=== PATIENT | male | born 2005 | race Native Hawaiian/Other Pacific Islander ===

== ENCOUNTER 2023-04-29 11:36 | Inpatient (IN) ==
[2023-04-29 12:27] LABS: Hematocrit (blood only) 45.9 % (42.0-52.0); Hemoglobin 14.7 g/dl (14.0-18.0); Mean Corpuscular Hemoglobin 26.3 pg (25.0-34.0); Platelet Count 204 K/uL (130-400); RDW Coefficient of Variation 15.9 % (11.5-14.5); RDW Standard Deviation 47.3 fL (36.4-46.3); White Blood Count 5.69 K/ul (4.8-10.8)
[2023-04-29 12:28] LABS: Basophils # (auto) 0.04 K/uL (0-0.2); Basophils % (auto) 0.7 %; Eosinophils # (auto) 0.19 K/uL (0-0.50); Eosinophils % (auto) 3.3 %; Immature Granulocytes # (auto) 0.02 K/uL (0.01-0.20); Immature Granulocytes % (auto) 0.4 %; Lymphocytes # (auto) 1.67 K/uL (1.2-3.4); Lymphocytes % (auto) 29.3 %; Mean Platelet Volume 10.7 fL (9.4-12.4); Monocytes # (auto) 0.33 K/uL (0.11-0.59); Monocytes % (auto) 5.8 %; Neutrophils # (auto) 3.44 K/uL (1.40-6.50); Neutrophils % (auto) 60.5 %
[2023-04-29 12:58] LABS: Alanine Aminotransferase 8 U/L (7-52); Albumin Globulin Ratio 1.6 (0.9-2); Albumin Level 4.8 gm/dl (3.4-5.0); Alkaline Phosphatase 61 U/L (34-104); Anion Gap 6 (3-11); Aspartate Aminotransferase 21 U/L (13-39); BUN Creatinine Ratio 18.6 (10-20); Bilirubin,Total 0.7 mg/dl (0.2-1.0); Blood Urea Nitrogen 13 mg/dl (6-23); Calcium 9.9 mg/dl (8.6-10.3); Carbon Dioxide 31 mmol/L (21-32); Chloride 101 mmol/L (98-107); Creatinine Clr Calc Pharmacy 151.9 ml/min; Est GFR (African American) > 150.0 ml/min; Est GFR (Non-African American) 135.9 ml/min; Glucose 80 mg/dl (70-99(Fasting)); Potassium 3.8 mmol/L (3.5-5.1); Sodium 138 mmol/L (136-145); Total Protein 7.8 gm/dl (6.0-8.3)
[2023-04-29 13:16] LABS: Acetaminophen < 3 ug/ml (10-30); Salicylate < 3.0 mg/dl (3.0-30)
[2023-04-29 13:19] LABS: Appearance Urine Clear (Clear); Bilirubin Urine Negative (Negative); Blood Urine Negative (Negative); Color Urine Yellow; Glucose Urine UA Negative (Negative); Ketones Urine Negative (Negative); Leukocyte Esterase Urine Negative (Negative); Nitrite Urine Negative (Negative); Protein Urine Negative (Negative); Specific Gravity Urine 1.004 (1.000-1.030); Urobilinogen Urine Negative (Negative); pH Urine 7.5 (4.5-7.5)
[2023-04-29 13:57] LABS: Amphetamines+Metham, Urine Neg (Neg); Barbiturates, Urine Neg (Neg); Benzodiazepine, Urine Neg (Neg); Cocaine, Urine Neg (Neg); MDMA (Ecstacy), Urine Neg (Neg); Methadone, Urine Neg (Neg); Opiate, Urine Neg (Neg); Phencyclidine, Urine Neg (Neg)
--- NOTE | 2023-04-29 14:35 | Emergency Department Note ---
History of Present Illness General Chief complaint: Mental Health Evaluation Stated complaint: MHA Time Seen by Provider: 04/29/23 11:44 Source: patient and family (Parents at bedside) History of Present Illness Provider complaint: Mental health evaluation Maximum Pain Intensity: 2 18-year-old male presents emergency department for mental health evaluation. Patient reports he has been feeling depressed. Patient reports he has been slee ping abnormally. Patient states he alternates between sleeping excessively and not sleeping at all. Patient reports he has had no interest in his hobbies such as running reading or music. Patient reports he has been feeling guilty but his mood instability. He reports he feels alternating between high and low energy depending on his sleep. Patient reports decrease in ability to concentrate and increase appetite. Patient reports suicidal ideation with no definitive plan however he thought to get a gun and kill himself or jump in front of traffic. Patient does have a history of depression and is on Wellbutrin. Patient was referred here by his therapist. Father at bedside reports that the patient has been talking to himself more. He reports the patient has been concerned that people are shooting guns at him. Patient father and mother both report that the patient has been having di fficulty doing his daily activities such as brushing his teeth or changing his close. Parents also report that the patient has been having on and off headaches for the last few months. Home Medications Medication Instructions Recorded Confirmed Type bupropion HCl 150 mg 24 hr tablet, 150 mg PO DAILY 04/29/23 04/29/23 History extended release Allergies Allergy/AdvReac Type Severity Reaction Status Date / Time No Known Allergies Allergy Unverified 04/29/23 14:18 Past Med/Surg History Medical History Anemia Depression with suicidal ideation No pertinent family history Surgical History No pertinent past surgical history Social History Smoking Status: Never smoker Feels Safe at Home: Yes Gender Identity: Male Physical Exam Vital Signs Vital Signs - 24 hr 04/29/23 11:37 04/29/23 11:36 Temperature 36.6 C Temperature Source Skin Respiratory Rate 18 Respiratory Depth Normal Blood Pressure 142/86 H Blood Pressure Mean 104 Pulse Oximetry 99 Oxygen Delivery Method Room Air Sepsis Recent Fever Within 48 Hours No Sepsis New/Unexplained Change in Mental Status No Sepsis Action Taken by Nursing No Action Required Physical Exam GENERAL: Patient is inappropriately laughing and smiling. HENT: Exam performed. - Head: Normocephalic and atraumatic. EYES: Conjunctivae and EOM are normal. Right eye exhibits no discharge. Left eye exhibits no discharge. No scleral icterus. NECK: Normal range of motion. Neck supple. No JVD present. CV: Normal rate, regular rhythm, normal heart sounds and intact distal pulses. There is no peripheral edema. Palpable radial pulses bue. PULM/CHEST: Effort normal and breath sounds normal. No respiratory distress. No stridor. no wheezes. no rales. ABD: The abdomen is soft. There is no tenderness. NEURO: Motor and sensation grossly intact. SKIN: Skin is warm and dry. He is not diaphoretic. PSYCH: Bizarre affect. Patient is inappropriately laughing and smiling. Patient reports suicidal ideation. Course Course 1144: The patient was evaluated in room A5. A complete history and physical exam was performed 1620: Patient medically cleared. Patient excepted to 3 S. Medical Decision Making Laboratory Data Attestation: I reviewed the patient's lab results. 04/29/23 12:11 04/29/23 12:11 Lab Results 04/29/23 04/29/23 04/29/23 Range/Units 12:11 12:11 12:11 WBC 5.69 (4.8-10.8) K/ul RBC 5.60 (4.70-6.10) M/uL Hgb 14.7 (14.0-18.0) g/dl Hct 45.9 (42.0-52.0) % MCV 82.0 (80.0-100.0) fL MCH 26.3 (25.0-34.0) pg MCHC 32.0 (32.0-36.0) g/dL RDW Std Deviation 47.3 H (36.4-46.3) fL RDW Coeff of Yolanda 15.9 H (11.5-14.5) % Plt Count 204 (130-400) K/uL MPV 10.7 (9.4-12.4) fL Immature Gran % (Auto) 0.4 % Neut % (Auto) 60.5 % Lymph % (Auto) 29.3 % [place] % (Auto) 5.8 % Eos % (Auto) 3.3 % Baso % (Auto) 0.7 % Neut # (Auto) 3.44 (1.40-6.50) K/uL Lymph # (Auto) 1.67 (1.2-3.4) K/uL [place] # (Auto) 0.33 (0.11-0.59) K/uL Eos # (Auto) 0.19 (0-0.50) K/uL Baso # (Auto) 0.04 (0-0.2) K/uL Immature Gran # (Auto) 0.02 (0.01-0.20) K/uL Sodium 138 (136-145) mmol/L Potassium 3.8 (3.5-5.1) mmol/L Chloride 101 (98-107) mmol/L Carbon Dioxide 31 (21-32) mmol/L Anion Gap 6 (3-11) BUN 13 (6-23) mg/dl Creatinine 0.70 (0.6-1.4) mg/dl Est Cr Clr Drug Dosing 151.9 ml/min Est GFR ( Amer) > 150.0 ml/min Est GFR (Non-Af Amer) 135.9 ml/min BUN/Creatinine Ratio 18.6 (10-20) Glucose 80 (70-99(Fasting)) mg/dl Calcium 9.9 (8.6-10.3) mg/dl Total Bilirubin 0.7 (0.2-1.0) mg/dl AST 21 (13-39) U/L ALT 8 (7-52) U/L Alkaline Phosphatase 61 (34-104) U/L Total Protein 7.8 (6.0-8.3) gm/dl Albumin 4.8 (3.4-5.0) gm/dl Globulin 3.0 (2.5-4.0) gm/dl Albumin/Globulin Ratio 1.6 (0.9-2) TSH 1.086 (0.300-4.500) uIu/ml Urine Color Urine Appearance (Clear) Urine pH (4.5-7.5) Ur Specific [place] (1.000-1.030) Urine Protein (Negative) Urine Glucose (UA) (Negative) Urine Ketones (Negative) Urine Blood (Negative) Urine Nitrite (Negative) Urine Bilirubin (Negative) Urine Urobilinogen (Negative) Ur Leukocyte Esterase (Negative) Salicylates (3.0-30) mg/dl Urine Opiates Screen (Neg) Ur Methadone, Qual (Neg) Acetaminophen (10-30) ug/ml Urine Barbiturates (Neg) Ur Phencyclidine (PCP) (Neg) U Amphetamin/Meth Scrn (Neg) MDMA (Ecstasy) Screen (Neg) U Benzodiazepines Scrn (Neg) Ur Cocaine Metabolite (Neg) U Marijuana (THC) Screen (Neg) Ethyl Alcohol mg/dL (<10.0) mg/dl SARS-CoV-2, RNA, NAAT (NEGATIVE) 04/29/23 04/29/23 04/29/23 Range/Units 12:11 12:11 12:11 WBC (4.8-10.8) K/ul RBC (4.70-6.10) M/uL Hgb (14.0-18.0) g/dl Hct (42.0-52.0) % MCV (80.0-100.0) fL MCH (25.0-34.0) pg MCHC (32.0-36.0) g/dL RDW Std Deviation (36.4-46.3) fL RDW Coeff of Yolanda (11.5-14.5) % Plt Count (130-400) K/uL MPV (9.4-12.4) fL Immature Gran % (Auto) % Neut % (Auto) % Lymph % (Auto) % [place] % (Auto) % Eos % (Auto) % Baso % (Auto) % Neut # (Auto) (1.40-6.50) K/uL Lymph # (Auto) (1.2-3.4) K/uL [place] # (Auto) (0.11-0.59) K/uL Eos # (Auto) (0-0.50) K/uL Baso # (Auto) (0-0.2) K/uL Immature Gran # (Auto) (0.01-0.20) K/uL Sodium (136-145) mmol/L Potassium (3.5-5.1) mmol/L Chloride (98-107) mmol/L Carbon Dioxide (21-32) mmol/L Anion Gap (3-11) BUN (6-23) mg/dl Creatinine (0.6-1.4) mg/dl Est Cr Clr Drug Dosing ml/min Est GFR ( Amer) ml/min Est GFR (Non-Af Amer) ml/min BUN/Creatinine Ratio (10-20) Glucose (70-99(Fasting)) mg/dl Calcium (8.6-10.3) mg/dl Total Bilirubin (0.2-1.0) mg/dl AST (13-39) U/L ALT (7-52) U/L Alkaline Phosphatase (34-104) U/L Total Protein (6.0-8.3) gm/dl Albumin (3.4-5.0) gm/dl Globulin (2.5-4.0) gm/dl Albumin/Globulin Ratio (0.9-2) TSH (0.300-4.500) uIu/ml Urine Color Yellow Urine Appearance Clear (Clear) Urine pH 7.5 (4.5-7.5) Ur Specific [place] 1.004 (1.000-1.030) Urine Protein Negative (Negative) Urine Glucose (UA) Negative (Negative) Urine Ketones Negative (Negative) Urine Blood Negative (Negative) Urine Nitrite Negative (Negative) Urine Bilirubin Negative (Negative) Urine Urobilinogen Negative (Negative) Ur Leukocyte Esterase Negative (Negative) Salicylates < 3.0 L (3.0-30) mg/dl Urine Opiates Screen (Neg) Ur Methadone, Qual (Neg) Acetaminophen < 3 L (10-30) ug/ml Urine Barbiturates (Neg) Ur Phencyclidine (PCP) (Neg) U Amphetamin/Meth Scrn (Neg) MDMA (Ecstasy) Screen (Neg) U Benzodiazepines Scrn (Neg) Ur Cocaine Metabolite (Neg) U Marijuana (THC) Screen (Neg) Ethyl Alcohol mg/dL < 10.0 (<10.0) mg/dl SARS-CoV-2, RNA, NAAT (NEGATIVE) 04/29/23 04/29/23 Range/Units 12:11 12:11 WBC (4.8-10.8) K/ul RBC (4.70-6.10) M/uL Hgb (14.0-18.0) g/dl Hct (42.0-52.0) % MCV (80.0-100.0) fL MCH (25.0-34.0) pg MCHC (32.0-36.0) g/dL RDW Std Deviation (36.4-46.3) fL RDW Coeff of Yolanda (11.5-14.5) % Plt Count (130-400) K/uL MPV (9.4-12.4) fL Immature Gran % (Auto) % Neut % (Auto) % Lymph % (Auto) % [place] % (Auto) % Eos % (Auto) % Baso % (Auto) % Neut # (Auto) (1.40-6.50) K/uL Lymph # (Auto) (1.2-3.4) K/uL [place] # (Auto) (0.11-0.59) K/uL Eos # (Auto) (0-0.50) K/uL Baso # (Auto) (0-0.2) K/uL Immature Gran # (Auto) (0.01-0.20) K/uL Sodium (136-145) mmol/L Potassium (3.5-5.1) mmol/L Chloride (98-107) mmol/L Carbon Dioxide (21-32) mmol/L Anion Gap (3-11) BUN (6-23) mg/dl Creatinine (0.6-1.4) mg/dl Est Cr Clr Drug Dosing ml/min Est GFR ( Amer) ml/min Est GFR (Non-Af Amer) ml/min BUN/Creatinine Ratio (10-20) Glucose (70-99(Fasting)) mg/dl Calcium (8.6-10.3) mg/dl Total Bilirubin (0.2-1.0) mg/dl AST (13-39) U/L ALT (7-52) U/L Alkaline Phosphatase (34-104) U/L Total Protein (6.0-8.3) gm/dl Albumin (3.4-5.0) gm/dl Globulin (2.5-4.0) gm/dl Albumin/Globulin Ratio (0.9-2) TSH (0.300-4.500) uIu/ml Urine Color Urine Appearance (Clear) Urine pH (4.5-7.5) Ur Specific [place] (1.000-1.030) Urine Protein (Negative) Urine Glucose (UA) (Negative) Urine Ketones (Negative) Urine Blood (Negative) Urine Nitrite (Negative) Urine Bilirubin (Negative) Urine Urobilinogen (Negative) Ur Leukocyte Esterase (Negative) Salicylates (3.0-30) mg/dl Urine Opiates Screen Neg (Neg) Ur Methadone, Qual Neg (Neg) Acetaminophen (10-30) ug/ml Urine Barbiturates Neg (Neg) Ur Phencyclidine (PCP) Neg (Neg) U Amphetamin/Meth Scrn Neg (Neg) MDMA (Ecstasy) Screen Neg (Neg) U Benzodiazepines Scrn Neg (Neg) Ur Cocaine Metabolite Neg (Neg) U Marijuana (THC) Screen Neg (Neg) Ethyl Alcohol mg/dL (<10.0) mg/dl SARS-CoV-2, RNA, NAAT NEGATIVE (NEGATIVE) Imaging Data My Impression: CT head: No [facility] Radiologist's Impression: Head CT 04/29/23 12:30 CT head/brain wo con CLINICAL HISTORY: 18 years-old Male with ams stephenson. Acute headache with altered mental status TECHNIQUE: Multiple axial CT images of the head were obtained without contrast. A dose lowering technique was utilized adhering to the principles of ALARA. CT DOSE: 625.80 mGy.cm COMPARISON: None. FINDINGS: No acute intracranial hemorrhage, midline shift, intracranial mass, hydrocephalus, territorial ischemia or abnormal extra-axial collection. The calvarium is intact. The paranasal sinuses, mastoid air cells, and middle ear cavities are clear. IMPRESSION: Normal exam. ACT 112: Negative or not required by law. The above report was generated using voice recognition software. It may contain grammatical, syntax or spelling errors. Electronically signed by: Nab Vasquez M.D. 04/29/2023 3:34 PM [facility] Narrative 1144: The patient was evaluated in room A5. A complete history and physical exam was performed 1620: Patient medically cleared. Patient excepted to 3 S. Impression & Plan Depression with suicidal ideation Discharge Plan Visit Data Chief Complaint: Mental Health Evaluation Stated Complaint: MHA ED Provider: Kian Tristan Discharge Problem: Depression with suicidal ideation Patient Disposition: Admitted As Inpatient Forms Stand Alone Forms: My [facility], Suicide Prevention Resources Prescriptions Prescriptions: No Action bupropion HCl 150 mg tablet extended release 24 hr 150 mg PO DAILY Referrals Referrals: Carmelina Real [Primary Care Provider] -
--- NOTE | 2023-04-29 15:36 | CT Scan Report ---
CT head/brain wo con CLINICAL HISTORY: 18 years-old Male with ams stephenson. Acute headache with altered mental status TECHNIQUE: Multiple axial CT images of the head were obtained without contrast. A dose lowering tech nique was utilized adhering to the principles of ALARA. CT DOSE: 625.80 mGy.cm COMPARISON: None. FINDINGS: No acute intracranial hemorrhage, midline shift, intracranial mass, hydrocephalus, territorial ischem ia or abnormal extra-axial collection. The calvarium is intact. The paranasal sinuses, mastoid air cells, and middle ear cavities are clear . IMPRESSION: Normal exam. ACT 112: Negative or not required by law. The above report was generated using voice recognition software. It may contain grammatical, syntax o r spelling errors. Electronically signed by: Nba Vasquez M.D. 04/29/2023 3:34 PM
[2023-04-29] MEDS ORDERED: ALUMINUM/MAGNESIUM SUSP 30 ML UDC PO PRN (16:17)
[2023-04-29] MEDS ORDERED: BISMUTH SUBSALICYLATE LIQD 236 ML PO PRN (16:17)
[2023-04-29] MEDS ORDERED: SODIUM CHLORIDE 0.65% NA SOLN 45 ML (OCEAN) PRN (16:17)
[2023-04-29] MEDS ORDERED: hydrOXYzine HCl 25 MG TAB PO PRN ×2 (16:17)
[2023-04-29] MEDS ORDERED: MAGNESIUM HYDROXIDE SUSP 30 ML UDC PO PRN (16:17)
[2023-04-29] MEDS ORDERED: ACETAMINOPHEN 325 MG TAB PO PRN (16:17)
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
--- NOTE | 2023-05-01 15:38 | Psychiatric Progress Note ---
Date of Service May 01, 2023 Impression / Recommendations Impression 18 yo man who presents for depression with at least passive SI that seems more related to intrusive thoughts due to mixed features with possible auditory lima vs. dissociative. Urine tox negative. most likely bipolar II presentation vs. depression with psychotic features vs. prodrome of psychosis vs. medication induced. 05/01/2023: Reviewed interim progress and assessment per above by Dr. Metz. Would add OCD to the differential as well as possible migraine aura symptoms but no clear pattern of headaches and head CT was normal. He agrees to complete mood disorder questionnaire and Y-BOCS to delineate possible mood disorder vs OCD component to better determine best direction in terms of medication management. (1) Depression with suicidal ideation: (2) Unspecified mood [affective] disorder: Plan 05/01/2023: Y-BOCS and mood disorder questionnaire provided in attempt to narrow broad differential and help with medication options. 04/30/2023: The patient was admitted to the [facility] ([facility]) on q15 min checks (behavioral with suicide precautions) for safety. The patient will participate in group, recreational, and milieu therapies and will be offered additional individual and family sessions as clinically appropriate. Hold Wellbutrin. No acute agitation. Consideration for trial of A bilify lower dose with hs dosing vs. Lamictal trial. Inventory Assets Strengths: well spoken, family oriented Needs: improve insight, improve coping Suicide Risk Level Suicide Risk Level: Moderate (q15 min suicide checks) (depression with SI prior to admission, but denies current SI, feels safe in the hospital, agrees to let nursing know should he feel unsafe or requires additional support ) Risk Factors Assessment Male: Yes Do You Have Access To A Gun?: No Mental Health Diagnoses: Yes Substance Use Disorders: No Previous Attempt: No Family History of Suicide: No Previous Psychiatric Hospitalization: No Protective Factors Assessment Employed: Yes ([employer]) Supportive Family: Yes Interval History Identifying Information JEVON ROLDAN is a 18-year-old M who currently lives in [place], has a history of depression, and was admitted on 04/29/23 17:19 on a 201 voluntary commitment for SI. Chief Complaint "I hear this humming and that's my sign that severe depression and SI is coming". Review of Systems Sleep Information Total Hours of Sleep: 6.5 Meal Information Percent Meal Consumed - Breakfast: 100 Percent Meal Consumed - Lunch: 100 Percent Meal Consumed - Dinner: 100 Subjective Subjective Patient was seen & assessed and interval progress reviewed with treatment team nursing and social work. Attending groups. This morning discussed desire to write down a list of his "delusions" with unit counselor to try to think more about what types of intrusive thoughts he has. Meeting with me describes history of hearing "humming" noise that tends to then precede a depressive episode and then eventually SI develops as his mood gets worse. Still enjoys his job but finds that as soon as he isn't distracted by talkign to someone he notices the noise and feels worse. Denies history of migraines nor seizures nor concussion nor hearing loss but states possibly the humming could precede headaches. He agrees that he likely has history of hypomanic or manic episodes but has also been on SSRIs in the past so unclear how problematic these mood shift episodes have been. He doesn't feel like the humming causes him to lose touch with reality or develop psychosis. Physical Exam Psychiatric Orientation: alert and oriented x 3 Apperance: appropriately dressed and appropriately groomed Eye Contact: good eye contact Motor Behavior: no abnormal motor movements Speech: normal rate/rhythm/volume of speech Affect: euthymic affect (inappropriately bright to content); + mood not congruent with affect Mood: + depressed mood Thought Process: + circumstantial thought process Thought Content: reality based without delusions Suicidal Thoughts: denies suicidal thoughts (feels safe in the hospital) Homicidal Thoughts: denies homicidal thoughts Hallucinations: + auditory hallucinations (repetitive noises ); no visual hallu cinations Cognition: attention grossly intact and language grossly intact Estimated Intelligence: consistent with education level Insight: + fair insight Judgment: + limited judgement Vital Signs (Past 24 Hours) Last Vital Signs Temp 36.6 C 05/01/23 06:00 Pulse 72 05/01/23 06:00 Resp 16 05/01/23 06:00 BP 106/70 05/01/23 06:46 Pulse Ox 100 05/01/23 06:00 O2 Del Method Room Air 05/01/23 06:00 Results & Data ([facility]) Current Inpatient Medications Current Inpatient Medications: Current Inpatient Medications Acetaminophen (Acetaminophen 325 Mg Tab) 650 mg PO Q4H PRN PRN Reason: Headache or Minor Fever Stop: 05/29/23 16:16 Al Hydrox/Mg Hydrox/Simethicone (Aluminum/Magnesium Susp 30 Ml Udc) 30 ml PO Q4H PRN PRN Reason: GI Upset Stop: 05/29/23 16:16 Bismuth Subsalicylate (Bismuth Subsalicylate Liqd 236 Ml) 15 ml PO PRN PRN PRN Reason: Loose Stool Stop: 05/29/23 16:16 Hydroxyzine HCl (Hydroxyzine Hcl 25 Mg Tab) 50 mg PO HSZ PRN PRN Reason: Insomnia Stop: 05/29/23 16:16 Hydroxyzine HCl (Hydroxyzine Hcl 25 Mg Tab) 25 mg PO Q4H PRN PRN Reason: Anxiety Stop: 05/29/23 16:16 Magnesium Hydroxide (Magnesium Hydroxide Susp 30 Ml Udc) 30 ml PO DAILY PRN PRN Reason: Constipation Stop: 05/29/23 16:16 Sodium Chloride (Sodium Chloride 0.65% Na Soln 45 Ml ([place])) 1 - 2 sprays NA PRN PRN PRN Reason: Nasal Dryness/Congestion Stop: 05/29/23 16:16 Mental Health & Subst Abuse Tx Psychiatrist Date Of Appointment With Psychiatric Provider: July 17, 2023 Therapist Name of Therapist: Ritu Stevenson, private practice Post Discharge Appointments Primary Care Physician Name Of Family Doctor/PCP: Dr. Heard
--- NOTE | 2023-05-02 09:14 | Psychiatric Progress Note ---
Date of Service May 02, 2023 Impression / Recommendations Impression 18 yo man who presents for depression with at least passive SI that seems more related to intrusive thoughts due to mixed features with possible auditory lima vs. dissociative. Urine tox negative. most likely bipolar II presentation vs. depression with psychotic features vs. prodrome of psychosis vs. medication induced. 05/02/2023: Depression starting to show some signs of improvement. Reviewed mood disorder questionnaire which was consistent with history of hypomanic episodes and based on additional history felt to be consistent with a diagnosis with bipolar affective disorder type II. Discussed medication treatment options in detail for mood stabilization to help with depression and to reduce liklihood of future episodes of hypomania including [place], Depakote, lamictal and antipsychotics. Discussed risks, benefits and alternatives. Patient would like to start and consented to lamictal for BPAD type II. Reviewed side effects including but not limited to: potential for fatal rash/Vinnie's Iker syndrome and need to stop immediately and seek immediate medical attention for development of any rashes, also reviewed importance of adhering to titration schedule and to contact provider before restarting lamictal if he ever were to miss more than 3 doses. Reviewed potentially higher risk of vinnie's iker syndrome among individuals with certain genetic and ethnic lineage with HLA al elias variants. Review of evidence-based literature reports cases of Holly Sinhala, [place] and [place]ese ancestry but no case reports or studies suggesting risk in those of [place] decent. He notes his family [place] [facility] so he doesn't not suspect any Sinhala heritage. Given this and that lamotrigine drug label does not currently recommend HLA allele screening prior to initiation, Rain agrees with starting lamictal. (1) Depression with suicidal ideation: (2) Unspecified mood [affective] disorder: (3) Bipolar II disorder, mild, depressed, with anxious distress: Plan 05/02/2023: Start lamictal 25mg HS 05/01/2023: Y-BOCS and mood disorder questionnaire provided in attempt to narrow broad differential and help with medication options. 04/30/2023: The patient was admitted to the [facility] ([facility] mental health unit) on q15 min checks (behavioral with suicide precautions) for safety. The patient will participate in group, recreational, and milieu therapies and will be offered additional individual and family sessions as clinically appropriate. Hold Wellbutrin. No acute agitation. Consideration for trial of Abilify lower dose with hs dosing vs. Lamictal trial. Inventory Assets Strengths: well spoken, family oriented Needs: improve insight, improve coping Suicide Risk Level Suicide Risk Level: Moderate (q15 min suicide checks) (depression with SI prior to admission, but denies current SI, feels safe in the hospital, agrees to let nursing know should he feel unsafe or requires additional support ) Risk Factors Assessment Male: Yes Do You Have Access To A Gun?: No Mental Health Diagnoses: Yes Substance Use Disorders: No Previous Attempt: No Family History of Suicide: No Previous Psychiatric Hospitalization: No Protective Factors Assessment Employed: Yes ([employer]) Supportive Family: Yes Interval History Identifying Information RAIN ROLDAN is a 18-year-old M who currently lives in [place], has a history of depression, and was admitted on 04/29/23 17:19 on a 201 voluntary commitment for SI. Chief Complaint "I'm pretty good". Review of Systems Sleep Information Total Hours of Sleep: 4.5 Meal Information Percent Meal Consumed - Breakfast: 100 Percent Meal Consumed - Lunch: 100 Percent Meal Consumed - Dinner: 100 Subjective Subjective Patient was seen & assessed and interval progress reviewed with treatment team nursing and social work. Attending groups and interacting well with peers. Spends a lot of time writing in his notebook. Has been better able to divert negative self thoughts. Woke up in the middle of the night, only slept about 4.5 hours. He feels his sleep was ok. Reports imrpoving mood, feels he is able to "catch myself" better when he starts to have thoughts of hopelessness. Reviewed mood disorder questionnaire and Y-BOCS in detail. Physical Exam Psychiatric Orientation: alert and oriented x 3 Apperance: appropriately dressed and appropriately groomed Eye Contact: good eye contact Motor Behavior: no abnormal motor movements Speech: normal rate/rhythm/volume of speech Affect: euthymic affect (inappropriately bright to content) Mood: + depressed mood Thought Process: + circumstantial thought process Thought Content: reality based without delusions Suicidal Thoughts: denies suicidal thoughts (feels safe in the hospital) Homicidal Thoughts: denies homicidal thoughts Hallucinations: + auditory hallucinations (repetitive noises ); no visual hallucinations Cognition: attention grossly intact and language grossly intact Estimated Intelligence: consistent with education level Insight: + fair insight Judgment: + limited judgement Vital Signs (Past 24 Hours) Last Vital Signs Temp 36.9 C 05/02/23 06:00 Pulse 84 05/02/23 06:51 Resp 18 05/02/23 06:00 BP 101/63 05/02/23 06:51 Pulse Ox 100 05/01/23 06:00 O2 Del Method Room Air 05/01/23 06:00 Results & Data ([facility]) Current Inpatient Medications Current Inpatient Medications: Current Inpatient Medications Acetaminophen (Acetaminophen 325 Mg Tab) 650 mg PO Q4H PRN PRN Reason: Headache or Minor Fever Stop: 05/29/23 16:16 Al Hydrox/Mg Hydrox/Simethicone (Aluminum/Magnesium Susp 30 Ml Udc) 30 ml PO Q4H PRN PRN Reason: GI Upset Stop: 05/29/23 16:16 Bismuth Subsalicylate (Bismuth Subsalicylate Liqd 236 Ml) 15 ml PO PRN PRN PRN Reason: Loose Stool Stop: 05/29/23 16:16 Hydroxyzine HCl (Hydroxyzine Hcl 25 Mg Tab) 50 mg PO HSZ PRN PRN Reason: Insomnia Stop: 05/29/23 16:16 Hydroxyzine HCl (Hydroxyzine Hcl 25 Mg Tab) 25 mg PO Q4H PRN PRN Reason: Anxiety Stop: 05/29/23 16:16 Magnesium Hydroxide (Magnesium Hydroxide Susp 30 Ml Udc) 30 ml PO DAILY PRN PRN Reason: Constipation Stop: 05/29/23 16:16 Sodium Chloride (Sodium Chloride 0.65% Na Soln 45 Ml ([place])) 1 - 2 sprays NA PRN PRN PRN Reason: Nasal Dryness/Congestion Stop: 05/29/23 16:16 Mental Health & Subst Abuse Tx Psychiatrist Date Of Appointment With Psychiatric Provider: July 17, 2023 Therapist Name of Therapist: Ritu Stevenson, private practice Post Discharge Appointments Primary Care Physician Name Of Family Doctor/PCP: Dr. Heard Primary Care Contact Information Discharge Discharge Address: [address] [place] [address]
[2023-05-02] MEDS: lamoTRIgine 25 MG TAB PO SCH (21:21)
--- NOTE | 2023-05-03 13:40 | Psychiatric Progress Note ---
Date of Service May 03, 2023 Impression / Recommendations Impression 18 yo man who presents for depression with at least passive SI that seems more related to intrusive thoughts due to mixed features with possible auditory lima vs. dissociative. Urine tox negative. most likely bipolar II presentation vs. depression with psychotic features vs. prodrome of psychosis vs. medication induced. 05/03/2023: Mood improving, no further AH, tolerating initiation of lamictal so far. (1) Depression with suicidal ideation: (2) Unspecified mood [affective] disorder: (3) Bipolar II disorder, mild, depressed, with anxious distress: Plan 05/03/2023: Continue lamictal and treatment plan. Needs a family meeting. 05/02/2023: Start lamictal 25mg HS 05/01/2023: Y-BOCS and mood disorder questionnaire provided in attempt to narrow broad differential and help with medication options. 04/30/2023: The patient was admitted to the [facility] ([facility] mental health unit) on q15 min checks (behavioral with suicide precautions) for safety. The patient will participate in group, recreational, and milieu therapies and will be offered additional individual and family sessions as clinically approp riate. Hold Wellbutrin. No acute agitation. Consideration for trial of Abilify lower dose with hs dosing vs. Lamictal trial. Inventory Assets Strengths: well spoken, family oriented Needs: improve insight, improve coping Suicide Risk Level Suicide Risk Level: Moderate (q15 min suicide checks) (depression with SI prior to admission, but denies current SI, mood improving, feels safe in the hospital, agrees to let nursing know should he feel unsafe or requires additional support ) Risk Factors Assessment Male: Yes Do You Have Access To A Gun?: No Mental Health Diagnoses: Yes Substance Use Disorders: No Previous Attempt: No Family History of Suicide: No Previous Psychiatric Hospitalization: No Protective Factors Assessment Employed: Yes ([employer]) Supportive Family: Yes Interval History Identifying Information JEVON ROLDAN is a 18-year-old M who currently lives in [place], has a history of depression, and was admitted on 04/29/23 17:19 on a 201 voluntary commitment for SI. Chief Complaint "I'm feeling more optimistic". Review of Systems Sleep Information Total Hours of Sleep: 7 Meal Information Percent Meal Consumed - Breakfast: 100 Percent Meal Consumed - Lunch: 100 Percent Meal Consumed - Dinner: 100 Subjective Subjective Patient was seen & assessed and interval progress reviewed with treatment team nursing and social work. He denies any side effects from starting lamictal. Feels his mood is improving. He's not having the noises anymore noting "the buzzing has subsided". 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 Feels he's starting to get some of his sense of creativity back which he feels is always an indication he's back to "feeling like my normal self". Physical Exam Psychiatric Orientation: alert and oriented x 3 Apperance: appropriately dressed and appropriately groomed Eye Contact: good eye contact Motor Behavior: no abnormal motor movements Speech: normal rate/rhythm/volume of speech Affect: euthymic affect Mood: + depressed mood Thought Process: goal directed thought process Thought Content: reality based without delusions Suicidal Thoughts: denies suicidal thoughts Homicidal Thoughts: denies homicidal thoughts Hallucinations: no auditory hallucinations and no visual hallucinations Cognition: attention grossly intact and language grossly intact Estimated Intelligence: consistent with education level Insight: + fair insight Judgment: + fair judgement Vital Signs (Past 24 Hours) Last Vital Signs Temp 37.2 C 05/03/23 06:00 Pulse 72 05/03/23 06:00 Resp 16 05/03/23 06:00 BP 90/51 L 05/03/23 06:46 Pulse Ox 99 05/03/23 06:00 O2 Del Method Room Air 05/03/23 06:00 Results & Data ([facility]) Current Inpatient Medications Current Inpatient Medications: Current Inpatient Medications Acetaminophen (Acetaminophen 325 Mg Tab) 650 mg PO Q4H PRN PRN Reason: Headache or Minor Fever Stop: 05/29/23 16:16 Al Hydrox/Mg Hydrox/Simethicone (Aluminum/Magnesium Susp 30 Ml Udc) 30 ml PO Q4H PRN PRN Reason: GI Upset Stop: 05/29/23 16:16 Bismuth Subsalicylate (Bismuth Subsalicylate Liqd 236 Ml) 15 ml PO PRN PRN PRN Reason: Loose Stool Stop: 05/29/23 16:16 Hydroxyzine HCl (Hydroxyzine Hcl 25 Mg Tab) 50 mg PO HSZ PRN PRN Reason: Insomnia Stop: 05/29/23 16:16 Hydroxyzine HCl (Hydroxyzine Hcl 25 Mg Tab) 25 mg PO Q4H PRN PRN Reason: Anxiety Stop: 05/29/23 16:16 Lamotrigine (Lamotrigine 25 Mg Tab) 25 mg PO HS QUINTIN Stop: 06/01/23 21:59 Last Admin: 05/02/23 21:21 Dose: 25 mg Magnesium Hydroxide (Magnesium Hydroxide Susp 30 Ml Udc) 30 ml PO DAILY PRN PRN Reason: Constipation Stop: 05/29/23 16:16 Sodium Chloride (Sodium Chloride 0.65% Na Soln 45 Ml ([place])) 1 - 2 sprays NA PRN PRN PRN Reason: Nasal Dryness/Congestion Stop: 05/29/23 16:16 Mental Health & Subst Abuse Tx Psychiatrist Name of Psychiatrist: Edgar Parra Psychiatrist's Date Of Appointment With Psychiatric Provider: 05/18/23 Time of Appointment with Psychiatrist: 10:00 AM Psychiatric Appointment Comment: [address] [facility] [id number] - please bring insurance card Therapist Name of Therapist: Ritu Ronquillo (private practice) Post Discharge Appointments Primary Care Physician Name Of Family Doctor/PCP: [facility] - Dr. Real Primary Care Time of Appointment with PCP: Please follow up with PCP as needed. Provider Appointment Comment: [id number], [place] [address] Contact Information Discharge Discharge Address: [address] [place] [id number]
[2023-05-03] MEDS: lamoTRIgine 25 MG TAB PO SCH (21:59)
--- NOTE | 2023-05-04 08:39 | Discharge Summary ---
Date of Service May 04, 2023 History of Present Illness Patient is calm and cooperative this am but on presentation to the ED yesterday pm seemed disorganized, confused, "mixed emotions" with sadness but periods of inappropriate affect. He denies SI at this time, says his thoughts are more like a "mumbling or a premonition" of what could happen. In ED his reports were nonspecific about a noose, juming, or getting a gun. He now denies yayo but states he had a "good week" last week where he attended to his classes and worked out. In ED he reported grandiosity, irritability, hyperverbal, elevated/expansive mood, facing thoughts, flight of ideas, increased energy and need for less sleep.His therapist directed him to the ED. He perhaps has experienced some paranoia like "that crashing noise" could be someone shooting. ED Physician ordered Head C which unremarkable. He reports taking Wellbutrin consistently for about a year, perhaps previously on a higher dose, he is unsure why decreased. He was recently offered a trial of Abilify (10 mg per surescripts). He states he took it once in the am and felt tired and numb and did not continue. Physical Exam Vital Signs (Past 24 Hours) Last Vital Signs Temp 36.4 C 05/04/23 06:00 Pulse 75 05/04/23 06:00 Resp 16 05/04/23 06:00 BP 96/61 L 05/04/23 06:29 Pulse Ox 99 05/04/23 06:00 O2 Del Method Room Air 05/04/23 06:00 See admission H&P and DOD summary. Principal Diagnosis Bipolar Affective Disorder Type II Psychiatric Data See daily stay summary. In short, patient was engaged with the social/therapeutic milieu of the unit, safety was maintained and the patient was cooperative with care. Medication changes included initiation of lamictal 25mg HS for BPAD type II and they tolerated this well. Wellbutrin XL 150mg daily was discontinued due to concern for activation and dopaminergic side effects. A fami ly session was held and safety plan was completed prior to discharge. He actively and insightfully participated in safety planning and in discussions about ways to seek support and recognizing warning signs and utilizing coping skills. Reviewed mobile apps that could be used for additional ways to have their safety plan and contacts easily available should thoughts of SI re-emerge in the future. Reviewed importance of seeking emergency care should SI intensify, worsen or should they feel unsafe in the future which they agree to do. 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 Day of Discharge Assessment Today the patient voices readiness for discharge. They note improvement in mood and anxiety. They deny thoughts of harm to self or others. Thoughts are organized and they are clinically improved from admission. There is no evidence of psychosis. They improved in the hospital with support and medication adjustments. They agree to take medications as prescribed and keep follow-up appointments. At the time of the discharge they are deemed to be stable and appropriate for outpatient level of care. They are not deemed to be at imminent risk of harm to self or others. They are aware of emergency and crisis services. Knows to call 911 or go to nearest emergency care center if in a crisis which cannot be handled as an outpatient. Transition of Care Transition Of Care Record: was reviewed with the patient Advance Directives Advance Directives Information Provided: Yes Advance Directives: No Mental Health Advance Directive: No Advance Directives on File: No Living Will: No Power of Study Lead: No Advance Directives Reason:: Declines as Mental Health Visit. Suicide Risk Level Suicide Risk Level Comments: Acute risk is low given improvement in mood and denial of SI, lack of access to lethal means, hopefulness and improvement in auditory hallucinations. Chronic risk is low given few non-modifiable risk factors: mood disorder and also with protective factors including employed/student, good social support, sense of responsibility to family and social supports, outpatient care in place, positive coping skills, positive problem solving, capacity to establish therapeutic alliance, willingness to engage with treatment and capacity for self- observation. Counseled on ways to reduce acute and chronic risk including engaging with outpatient providers, using safety plan if needed, utilizing supports, taking medication, and using coping skills. Modifiable risk factors of SI and depression were addressed during hospitalization through development of new coping skills, family meeting, safety planning, and medication adjustments. Risk Factors Assessment Male: Yes : No Do You Have Access To A Gun?: No Health Problems: No Mental Health Diagnoses: Yes Substance Use Disorders: No Previous Attempt: No Family History of Suicide: No Previous Psychiatric Hospitalization: No Hopelessness: No Protective Factors Assessment Employed: Yes ([employer]) Stable Relationships: Yes Supportive Family: Yes Good Rapport with Provider: Yes Discharge Data Lab Results 04/29/23 04/29/23 04/29/23 12:11 12:11 12:11 WBC 5.69 RBC 5.60 Hgb 14.7 Hct 45.9 MCV 82.0 MCH 26.3 MCHC 32.0 RDW Std Deviation 47.3 H RDW Coeff of Yolanda 15.9 H Plt Count 204 MPV 10.7 Immature Gran % (Auto) 0.4 Neut % (Auto) 60.5 Lymph % (Auto) 29.3 [place] % (Auto) 5.8 Eos % (Auto) 3.3 Baso % (Auto) 0.7 Neut # (Auto) 3.44 Lymph # (Auto) 1.67 [place] # (Auto) 0.33 Eos # (Auto) 0.19 Baso # (Auto) 0.04 Immature Gran # (Auto) 0.02 Sodium 138 Potassium 3.8 Chloride 101 Carbon Dioxide 31 Anion Gap 6 BUN 13 Creatinine 0.70 Est Cr Clr Drug Dosing 151.9 Est GFR ( Amer) > 150.0 Est GFR (Non-Af Amer) 135.9 BUN/Creatinine Ratio 18.6 Glucose 80 Calcium 9.9 Total Bilirubin 0.7 AST 21 ALT 8 Alkaline Phosphatase 61 Total Protein 7.8 Albumin 4.8 Globulin 3.0 Albumin/Globulin Ratio 1.6 TSH 1.086 Urine Color Urine Appearance Urine pH Ur Specific [place] Urine Protein Urine Glucose (UA) Urine Ketones Urine Blood Urine Nitrite Urine Bilirubin Urine Urobilinogen Ur Leukocyte Esterase Salicylates Urine Opiates Screen Ur Methadone, Qual Acetaminophen Urine Barbiturates Ur Phencyclidine (PCP) U Amphetamin/Meth Scrn MDMA (Ecstasy) Screen U Benzodiazepines Scrn Ur Cocaine Metabolite U Marijuana (THC) Screen Ethyl Alcohol mg/dL SARS-CoV-2, RNA, NAAT 04/29/23 04/29/23 04/29/23 12:11 12:11 12:11 WBC RBC Hgb Hct MCV MCH MCHC RDW Std Deviation RDW Coeff of Yolanda Plt Count MPV Immature Gran % (Auto) Neut % (Auto) Lymph % (Auto) [place] % (Auto) Eos % (Auto) Baso % (Auto) Neut # (Auto) Lymph # (Auto) [place] # (Auto) Eos # (Auto) Baso # (Auto) Immature Gran # (Auto) Sodium Potassium Chloride Carbon Dioxide Anion Gap BUN Creatinine Est Cr Clr Drug Dosing Est GFR ( Amer) Est GFR (Non-Af Amer) BUN/Creatinine Ratio Glucose Calcium Total Bilirubin AST ALT Alkaline Phosphatase Total Protein Albumin Globulin Albumin/Globulin Ratio TSH Urine Color Yellow Urine Appearance Clear Urine pH 7.5 Ur Specific [place] 1.004 Urine Protein Negative Urine Glucose (UA) Negative Urine Ketones Negative Urine Blood Negative Urine Nitrite Negative Urine Bilirubin Negative Urine Urobilinogen Negative Ur Leukocyte Esterase Negative Salicylates < 3.0 L Urine Opiates Screen Ur Methadone, Qual Acetaminophen < 3 L Urine Barbiturates Ur Phencyclidine (PCP) U Amphetamin/Meth Scrn MDMA (Ecstasy) Screen U Benzodiazepines Scrn Ur Cocaine Metabolite U Marijuana (THC) Screen Ethyl Alcohol mg/dL < 10.0 SARS-CoV-2, RNA, NAAT 04/29/23 04/29/23 12:11 12:11 WBC RBC Hgb Hct MCV MCH MCHC RDW Std Deviation RDW Coeff of Yolanda Plt Count MPV Immature Gran % (Auto) Neut % (Auto) Lymph % (Auto) [place] % (Auto) Eos % (Auto) Baso % (Auto) Neut # (Auto) Lymph # (Auto) [place] # (Auto) Eos # (Auto) Baso # (Auto) Immature Gran # (Auto) Sodium Potassium Chloride Carbon Dioxide Anion Gap BUN Creatinine Est Cr Clr Drug Dosing Est GFR ( Amer) Est GFR (Non-Af Amer) BUN/Creatinine Ratio Glucose Calcium Total Bilirubin AST ALT Alkaline Phosphatase Total Protein Albumin Globulin Albumin/Globulin Ratio TSH Urine Color Urine Appearance Urine pH Ur Specific [place] Urine Protein Urine Glucose (UA) Urine Ketones Urine Blood Urine Nitrite Urine Bilirubin Urine Urobilinogen Ur Leukocyte Esterase Salicylates Urine Opiates Screen Neg Ur Methadone, Qual Neg Acetaminophen Urine Barbiturates Neg Ur Phencyclidine (PCP) Neg U Amphetamin/Meth Scrn Neg MDMA (Ecstasy) Screen Neg U Benzodiazepines Scrn Neg Ur Cocaine Metabolite Neg U Marijuana (THC) Screen Neg Ethyl Alcohol mg/dL SARS-CoV-2, RNA, NAAT NEGATIVE Hospital Course (1) Depression with suicidal ideation: (2) Unspecified mood [affective] disorder: (3) Bipolar II disorder, mild, depressed, with anxious distress: Plan 05/03/2023: Continue lamictal and treatment plan. Needs a family meeting. 05/02/2023: Start lamictal 25mg HS 05/01/2023: Y-BOCS and mood disorder questionnaire provided in attempt to narrow broad differential and help with medication options. 04/30/2023: The patient was admitted to the [facility] ([facility] mental health unit) on q15 min checks (behavioral with suicide precautions) for safety. The patient will participate in group, recreational, and milieu therapies and will be offered additional individual and family sessions as clinically appropriate. Hold Wellbutrin. No acute agitation. Consideration for trial of Abilify lower dose with hs dosing vs. Lamictal trial. Mental Health & Subst Abuse Tx Psychiatrist Name of Psychiatrist: Edgar Parra Psychiatrist's Date Of Appointment With Psychiatric Provider: 05/18/23 Time of Appointment with Psychiatrist: 10:00 AM Psychiatric Appointment Comment: [address] [facility] [id number] - please bring insurance card Psychiatrist Release of Information: Obtained, Reviewed and Signed Therapist Name of Therapist: Ritu Ronquillo (private practice) Therapist's Phone Number: [phone] Date of Therapist Appointment: 05/06/23 Time of Therapist Appointment: 1:00pm Post Discharge Appointments Primary Care Physician Name Of Family Doctor/PCP: [facility] - Dr. Real Primary Care Time of Appointment with PCP: Please follow up with PCP as needed. Provider Appointment Comment: [address], [place] [address] Primary Care Release of Information: Obtained, Reviewed and Signed Contact Information Discharge Discharge [address]: [address] [place] [id number] Discharge Plan Discharge Items Patient Disposition: Home - Self-Care Reason For Visit: MDD Discharge Diagnosis: Bipolar Affective Disorder Type II Activity: Resume your previous activity Non-emergency contact: Primary Care Provider, Psychiatrist and Therapist Call non-emergency contact if: you have any medication questions and your symptoms worsen Follow-up/Referrals: Carmelina Real [Primary Care Provider] - Diet: Regular Addtl Attending Provider Instructions: Optional mobile apps we discussed: -Suicide safety plan -Virtual Hope Box SPECIAL CARE INSTRUCTIONS: 1. Follow through with your scheduled aftercare appointments. If unable to keep an appointment, please call to reschedule. 2. Take your medication only as prescribed. Medication should not be changed or stopped without the approval of your doctor. In the event of worsening symptoms or concerns about side effects, contact your doctor immediately. 3. Utilize new healthy coping skills, anger management skills, and stress management skills learned during your hospitalization. Journal feelings and process them with a support person. Identify stressors or situations that may result in relapse, deterioration or inappropriate behaviors and develop a plan to deal with those issues. 4. If your coping skills are ineffective and you are in crisis, contact your outpatient providers for direction. If unable to reach your providers, please call the [facility] CRISIS LINE AT , go to the [facility] walk-in center at [address] [place] [address] A, [place], or go to the closest Emergency Room. 5. Avoid alcohol and un-prescribed drugs. 6. You have been provided with the Mental Health Advance Directives Pamphlet for your review. 7. Your condition is stable for discharge to outpatient level of care, but recovery is an ongoing process. Ifthoughts to harm yourself or others return, follow the safety plan developed during your stay. Planning for a safe return home includes securing weapons. Our treatment team recommends weaponsbe removed from the home until your outpatient provider reassesses your progress. In rare cases where the items themselvescannot be removed, guns and ammunitionshould be secured separatelyand keys stored by a reliable personoutside of the home. If you were admitted on an involuntary commitment, the police or other legal authorities may be involved in this process. AFTERCARE APPOINTMENTS: * Please call your insurance company prior to your scheduled appointment to confirm your aftercare providers are covered. Take your insurance information to your appointments. WHO TO CALL AND WHEN: Medical Emergencies: For questions or emergencies related to your hospital stay, please contact the Inpatient Behavioral Health Unit at [phone]. A psychiatric aide is on-call 31/05 for the Behavioral Health Unit for emergencies At any time you feel your situation is an emergency, you may also call 911 immediately. National Crisis Hotline: 988 Pending Studies at Discharge: No Stand-Alone Forms: My [facility] Medications and DC Order Prescriptions: New lamotrigine [Lamictal] 25 mg Tablet 25 mg PO HS 30 Days Qty: 30 0RF Discontinued bupropion HCl 150 mg tablet extended release 24 hr 150 mg PO DAILY Discharge Orders: Discharge Order (Routine); Ordered 05/04/23 Ordered By: Felicia Bucio Admission Data Admit Date/Time: 04/29/23 17:19 Attending Provider: Felicia Bucio Admit Provider: Sujey Metz Primary Care Provider: Carmelina Real Other Interventions: Discharge Summary Assessment (RN) Last Done: 05/04/23 10:18 PSY Interdisciplinary Discharge Planning Last Done: 05/04/23 10:18 Coding Level of Care Code 07472 D/C day mgmt > 30 min Diagnoses Depression with suicidal ideation F32.A; R45.851 Unspecified mood [affective] disorder F39 Bipolar II disorder, mild, depressed, with anxious distress F31.81 Time Spent (min) 35
== END 2023-05-04 11:23 | disposition home or self-care (01) | DRG 885 ==
LOC: ED 11:36 → 3S 17:14 → SUATTDRO 17:19 → 3S 17:19

== ENCOUNTER 2025-10-25 16:46 | Inpatient (IN) ==
--- NOTE | 2025-10-25 17:11 | Emergency Department Note ---
Impression & Plan Depression with suicidal ideation ED Provider Note ED Provider Note NAME: JEVON ROLDAN AGE:20 SEX: Male : 2005 ARRIVES VIA: POV INFORMANT: Patient ED PROVIDER(s): Krysta Galan CHIEF COMPLAINT: Suicidal ideation HPI: 20-year-old male presents the emergency room with complaints of suicidal ideation. Patient states he does not really have a plan, but he has been speaking about suicide per his family. He states that sometimes things get bad like this and he tried to come in earlier than he did the last time when he got really out of control by his own recollection of events. He states that he has been taking his medications. He just is not sure what is going on, but he quit school, is just sleeping and not really doing anything else, and feels he needs help. He denies any homicidal ideation. Denies any drugs or alcohol. PAST MEDICAL HISTORY:See Below PAST SURGICAL HISTORY:See Below FAMILY HISTORY:See Below SOCIAL HISTORY:See Below HOME MEDICATIONS:See Below ALLERGIES:See Below VITALS:See Below PHYSICAL EXAMINATION: GENERAL: alert, well appearing, well nourished, no distress, non-toxic NECK: supple, no nuchal rigidity, no adenopathy, non-tender LUNGS: Clear to auscultation. Normal chest wall mechanics, no w/r/r HEART: no murmurs, S1 normal and S2 normal ABDOMEN: abdomen soft, non-tender, normo-active bowel sounds, no masses, no rebound or guarding. BACK: Back is symmetrical on inspection and there is no deformity, no midline tenderness, no CVA tenderness. SKIN: no rashes, petechiae, orbruising UPPER EXTREMITIES: upper extremities are grossly normal. FROM, nml pulses b/l. LOWER EXTREMITIES: No pitting edema. FROM, nml pulses b/l. NEURO EXAM: Normal sensorium, normal speech, nogross weakness of arms, no gross weakness of legs. Vital Signs: reviewed and remarkable Differential Diagnosis: Mood disorder, infection, hypoglycemia, electrolyte abnormalities, cardiac sources, intracerebral event, toxicologic, trauma, neurologic, as well as other pathologies. MEDICAL DECISION MAKIN-year-old male presents emergency room with complaints of suicidal ideation. Agreeable to inpatient mental health, was admitted after an evaluation in the emergency room without further incident. Consultation(s): Behavioral health ER Treatment Provided: See below Diagnostics Interpreted By Me: -ECG: EKG shows normal sinus rhythm at a rate of [address] changes, some ST flattening in lead III. -Laboratory studies: As stated above and show below. 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 Beliefs That Will Affect Care: None Feels Safe at Home: Yes Gender Identity: Male Assistive Devices: None Allergies Allergies Allergy/AdvReac Type Severity Reaction Status Date / Time No Known Allergies Allergy Unverified 04/29/23 14:18 Home Meds Home Medications Medication Instructions Recorded Confirmed quetiapine 25 mg tablet 150 mg PO QPM 08/13/25 10/25/25 vilazodone 20 mg tablet 10 mg PO QAM 08/13/25 10/25/25 ergocalciferol (vitamin D2) 1,250 1,250 mcg PO WK 10/25/25 10/25/25 mcg (50,000 unit) capsule ferrous sulfate 325 mg (65 mg 325 mg PO QPM 10/25/25 10/25/25 iron) tablet (iron) Results & Data (ED) Vital Signs Vital Signs - 24 hr 10/25/25 16:49 10/25/25 18:43 10/25/25 20:25 Temperature 36.6 C Temperature Source Temporal Artery Scan Pulse Rate 86 Pulse Rate [Finger] 73 Respiratory Rate 18 16 16 Respiratory Effort / Characteristics Non-Labored Spontaneous Respiratory Depth Normal Respiratory Pattern Regular Blood Pressure 139/86 Blood Pressure [Right Arm] 124/78 Blood Pressure Mean 103 Blood Pressure Mean [Right Arm] 93 Blood Pressure Position [Right Arm] Semi-fowlers Pulse Oximetry 100 97 Oxygen Delivery Method Room Air Sepsis Recent Fever Within 48 Hours No Sepsis New/Unexplained Change in Mental Status N/A Sepsis Action Taken by Nursing No Action Required Laboratory Data 10/25/25 17:41 10/25/25 17:41 Lab Results 10/25/25 10/25/25 Range/Units 17:05 17:41 WBC 6.49 (4.8-10.8) K/ul RBC 5.82 (4.70-6.10) M/uL Hgb 16.1 (14.0-18.0) g/dL Hct 48.7 (42.0-52.0) % MCV 83.7 (80.0-100.0) fL MCH 27.7 (25.0-34.0) pg MCHC 33.1 (32.0-36.0) g/dL RDW Std Deviation 36.2 L (36.4-46.3) fL RDW Coeff of Yolanda 12.0 (11.5-14.5) % Plt Count 203 (130-400) K/uL MPV 9.9 (9.4-12.4) fL Immature Gran % (Auto) 0.8 % Neut % (Auto) 61.8 % Lymph % (Auto) 29.1 % [place] % (Auto) 5.1 % Eos % (Auto) 2.6 % Baso % (Auto) 0.6 % Neut # (Auto) 4.01 (1.40-6.50) K/uL Lymph # (Auto) 1.89 (1.20-3.40) K/uL [place] # (Auto) 0.33 (0.11-0.59) K/uL Eos # (Auto) 0.17 (0.00-0.50) K/uL Baso # (Auto) 0.04 (0.00-0.20) K/uL Immature Gran # (Auto) 0.05 (0.01-0.20) K/uL Sodium 139 (136-145) mmol/L Potassium 3.9 (3.5-5.1) mmol/L Chloride 104 (98-107) mmol/L Carbon Dioxide 26 (21-32) mmol/L Anion Gap 9 (3-11) BUN 12 (6-23) mg/dl Creatinine 0.74 (0.6-1.4) mg/dl Est Cr Clr Drug Dosing 157.0 ml/min eGFR 131.38 BUN/Creatinine Ratio 16.2 (10-20) Glucose 90 (70-99(Fasting)) mg/dl Calcium 9.9 (8.6-10.3) mg/dl Total Bilirubin 0.5 (0.2-1.0) mg/dl AST 18 (13-39) U/L ALT 6 L (7-52) U/L Alkaline Phosphatase 73 (34-104) U/L Total Protein 8.0 (6.0-8.3) gm/dl Albumin 4.7 (3.4-5.0) gm/dl Globulin 3.3 (2.5-4.0) gm/dl Albumin/Globulin Ratio 1.4 (0.9-2) TSH 1.384 (0.300-4.500) uIu/ml Urine Color Yellow Urine Appearance Clear (Clear) Urine pH 7.5 (4.5-7.5) Ur Specific [place] 1.022 (1.000-1.030) Urine Protein Negative (Negative) Urine Glucose (UA) Negative (Negative) Urine Ketones Trace H (Negative) Urine Blood Negative (Negative) Urine Nitrite Negative (Negative) Urine Bilirubin Negative (Negative) Urine Urobilinogen Negative (Negative) Ur Leukocyte Esterase Negative (Negative) Urine Comment Salicylates < 3.0 L (3.0-30) mg/dl Urine Opiates Screen Neg (Neg) Ur Methadone, Qual Neg (Neg) Urine Fentanyl Screen Neg (Neg) Acetaminophen < 3 L (10-30) ug/ml Urine Barbiturates Neg (Neg) Ur Phencyclidine (PCP) Neg (Neg) U Amphetamin/Meth Scrn Neg (Neg) MDMA (Ecstasy) Screen Neg (Neg) U Benzodiazepines Scrn Neg (Neg) Ur Cocaine Metabolite Neg (Neg) U Marijuana (THC) Screen Neg (Neg) Ethyl Alcohol mg/dL < 10.0 (<10.0) mg/dl Administered Medications Discontinued Medications Ferrous Sulfate (Ferrous Sulfate 325 Mg Tab) 325 mg PO ONE STA Stop: 10/25/25 22:48 Last Admin: 10/25/25 23:06 Dose: 325 mg Documented By: ABDULAZIZ Quetiapine Fumarate (Quetiapine Fumarate 25 Mg Tablet) 150 mg PO ONE ONE Stop: 10/25/25 22:46 Last Admin: 10/25/25 23:06 Dose: 150 mg Documented By: ABDULAZIZ Discharge Plan Visit Data Chief Complaint: Mental Health Evaluation Stated Complaint: DELUSIONAL THINKING ED Provider: Ysabel Galan Discharge Problem: Depression with suicidal ideation Patient Disposition: Admitted As Inpatient Condition: Good Discharge Instructions Interventions: ED Discharge Assessment Last Done: 10/25/25 21:15
[2025-10-25 17:29] LABS: Appearance Urine Clear (Clear); Glucose Urine UA Negative (Negative)
[2025-10-25 17:56] LABS: Hematocrit (blood only) 48.7 % (42.0-52.0); Hemoglobin 16.1 g/dL (14.0-18.0); Immature Granulocytes # (auto) 0.05 K/uL (0.01-0.20); Immature Granulocytes % (auto) 0.8 %; Mean Corpuscular Hemoglobin 27.7 pg (25.0-34.0); Mean Corpuscular Volume 83.7 fL (80.0-100.0); Platelet Count 203 K/uL (130-400); RDW Standard Deviation 36.2 fL (36.4-46.3); Red Blood Count 5.82 M/uL (4.70-6.10); White Blood Count 6.49 K/ul (4.8-10.8)
[2025-10-25 18:15] LABS: Alanine Aminotransferase 6.0 U/L (7-52); Albumin Globulin Ratio 1.4 (0.9-2); Albumin Level 4.7 gm/dl (3.4-5.0); Alkaline Phosphatase 73.0 U/L (34-104); Anion Gap 9.0 (3-11); Bilirubin,Total 0.5 mg/dl (0.2-1.0); Blood Urea Nitrogen 12.0 mg/dl (6-23); Calcium 9.9 mg/dl (8.6-10.3); Carbon Dioxide 26.0 mmol/L (21-32); Chloride 104.0 mmol/L (98-107); Creatinine Clr Calc Pharmacy 157.0 ml/min; Globulin 3.3 gm/dl (2.5-4.0); Glucose 90.0 mg/dl (70-99(Fasting)); Potassium 3.9 mmol/L (3.5-5.1); Sodium 139.0 mmol/L (136-145); Total Protein 8.0 gm/dl (6.0-8.3)
[2025-10-25 18:17] LABS: Acetaminophen < 3 ug/ml (10-30); Salicylate < 3.0 mg/dl (3.0-30)
[2025-10-25 18:29] LABS: Thyroid Stimulating Hormone 1.384 uIu/ml (0.300-4.500)
[2025-10-25 18:34] LABS: Amphetamines+Metham, Urine Neg (Neg); MDMA (Ecstacy), Urine Neg (Neg); Marijuana, Urine Neg (Neg)
[2025-10-25] MEDS ORDERED: ACETAMINOPHEN 325 MG TAB PO PRN (21:57)
[2025-10-25] MEDS ORDERED: MAGNESIUM HYDROXIDE SUSP 30 ML UDC PO PRN (21:57)
[2025-10-25] MEDS ORDERED: BISMUTH SUBSALICYLATE 262 MG CHEW PO PRN (21:57)
[2025-10-25] MEDS ORDERED: ALUMINUM/MAGNESIUM SUSP 30 ML UDC PO PRN (21:57)
[2025-10-25] MEDS ORDERED: SODIUM CHLORIDE 0.65% NA SOLN 45 ML (OCEAN) PRN (21:57)
[2025-10-25] MEDS ORDERED: LORazepam 0.5 MG TAB PO PRN (22:28)
[2025-10-25] MEDS: FERROUS SULFATE 325 MG TAB PO STA (23:06)
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
[2025-10-26] MEDS: lamoTRIgine 25 MG TAB PO SCH (12:43)
--- NOTE | 2025-10-26 18:19 | Electrocardiogram Report ---
Test Reason : Blood Pressure : */* mmHG Vent. Rate : 72 BPM Atrial Rate : 72 BPM P-R Int : 120 ms QRS Dur : 104 ms QT Int : 372 ms P-R-T Axes : 54 81 50 degrees QTcB Int : 407 ms Normal sinus rhythm Normal ECG When compared with ECG of 13-Aug-2025 16:32, No significant change was found Confirmed by Giovani Barfield ([id number]) on 10/26/2025 6:19:35 PM Referred By: Confirmed By: Giovani Barfield
[2025-10-26] MEDS: FERROUS SULFATE 325 MG TAB PO SCH (20:43)
[2025-10-27] MEDS: INFLUENZA VACC TS2025-26(6m+)/PF (IIV3) 0.5mL Syr IM ONE (10:48)
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
[2025-10-28] MEDS: DIVALPROEX DELAY RELEASE 250 MG TABEC PO SCH (21:22)
--- NOTE | 2025-10-29 13:58 | Psychiatric Progress Note ---
Date of Service October 29, 2025 Impression / Recommendations Impression Patient is 20-year-old male with a known history of bipolar 2 disorder, and presents with likely mixed episode, involving depressive features (hypersomnia, low motivation and low mood with increased sense of worthlessness), and mild hypomanic symptoms (talkativeness, pressured speech, racing thoughts). However, also had a significant amount of anxiety, which does seem to stem from a longstanding history of multiple traumatic events, many of them related to his minority status, which interfered with his normal development of identity and social connectedness. A:Patient having disrupted sleep with distressing dreams. Today we reflected on his childhood traumas. Discussed mindfulness, automatic thoughts, self worth strategies. Tolerating Depakote well. Plan to optimize Depakote dose and decrease Seroquel dose. Overall, I spent a total of 70 minutes on this patient's care, including review of chart/records, direct evaluation of the patient, gathering collateral, ordering medication, coordination with nursing, interdisciplinary team meeting, and documentation. (1) Borderline personality disorder: (2) ADHD (attention deficit hyperactivity disorder), inattentive type: (3) Mixed bipolar II disorder: Plan 10/29/2025: Increase Depakote to 500 mg at bedtime Decrease quetiapine to 50 mg at bedtime 10/28/2025: Start Depakote 250 mg at bedtime 10/27/2025: Questionnaires: BPD screener, medication check list Continue medications 10/26/25: The patient was admitted to the [facility] ([facility]) on q15 min checks (behavioral with suicide precautions) for safety. The patient will participate in group, recreational, and milieu therapies and will be offered additional individual and family sessions as clinically appropriate. New medications initiated: Lamictal 25 mg Continue the following home medications: Seroquel 150 mg nightly * Viibryd can be continued once patient brings it in from home, since it is not on hospital's formulary The following PRN medications will be started as well: Zyprexa and Ativan as needed agitation Vistaril as needed sleep or anxiety Maalox, Pepto, milk of mag as needed GI distress Tylenol as needed pain Inventory Assets Strengths: well-spoken, establish outpatient providers, supportive parents Needs: and proved coping skills, medication adjustment, possibly new therapy referral Suicide Risk Level Suicide Risk Level: Moderate (q15 min suicide checks) Suicide Risk Level Comments: moderate given statements of passive/vague suicidal ideation. No intent or plan. No history of attempts. Does have a past psychiatric admission, and increased impulsivity due to hypomanic features. Risk Factors Assessment Male: Yes : No Do You Have Access To A Gun?: No Health Problems: No Mental Health Diagnoses: Yes Substance Use Disorders: No Previous Attempt: No Family History of Suicide: No Previous Psychiatric Hospitalization: Yes Protective Factors Assessment Ep[employer]opalian Beliefs: No : No Responsible for Young Children: No Employed: No Supportive Family: Yes Interval History Identifying Information Patient is 20-year-old male with a known history of bipolar 2 disorder presenting with depressive features (hypersomnia, low motivation and low mood with increased sense of worthlessness), and mild hypomanic symptoms (talkativeness, pressured speech, racing thoughts). Chief Complaint Anxiety, emotional dysregulation Review of Systems Sleep Information Total Hours of Sleep: 6.5 Meal Information Percent Meal Consumed - Breakfast: 0 Percent Meal Consumed - Lunch: 100 Percent Meal Consumed - Dinner: 100 Subjective Subjective Patient was seen & assessed and interval progress reviewed with treatment team nursing and social work Overnight slept 6.5 hours. Attending groups. Rated mood 3 out of 10. At times presents a bright and reactive affect. Parents visited last night. On interview patient reports he is "cheery and laughing" but still feels low at times. Often circumstantial and tangential throughout the conversation and requires redirection. Reports having dreams last night of his classmates being harsh towards him and we reflect on this. Says that when he grew up his father was studying and was quite busy and his mom was trying to take care of the household. Remembers a moment when she got very sick and he felt like his life was collapsing. He felt neglected and did not feel he had good role models. He lived in a town in [place] where a lot of his friends were there temporarily and would leave eventually. Reports life always feeling miserable. Often witnessed verbal fights between parents and there was a communication gap due to different languages and cultural understanding. Physical Exam Mental Examination Appearance: Well Groomed Eye Contact: Maintains Eye Contact Motor Behavior: Unremarkable Speech: Normal and Circumstantial Mood: Calm and Anxious Affect: Congruent and Constricted Thought Process: Intact, Circumstantial and Linear Thought Content: Racing Hallucinations: None Insight: Fair Judgement: Fair Vital Signs (Past 24 Hours) Last Vital Signs Temp 36.4 C L 10/29/25 06:54 Pulse 55 L 10/29/25 06:54 Resp 18 10/29/25 06:54 BP 110/55 L 10/29/25 06:54 Pulse Ox 98 10/29/25 06:54 O2 Del Method Room Air 10/29/25 06:54 A physical exam was performed in the ED for the purposes of medical dontrellhans suarez. I accept that physical as correct and adequate for the purposes of the inpatient physical exam. Results & Data ([facility]) Current Inpatient Medications Current Inpatient Medications: Current Inpatient Medications Acetaminophen (Acetaminophen 325 Mg Tab) 650 mg PO Q4H PRN PRN Reason: Headache or Minor Fever Stop: 11/24/25 21:56 Al Hydrox/Mg Hydrox/Simethicone (Aluminum/Magnesium Susp 30 Ml Udc) 30 ml PO Q4H PRN PRN Reason: GI Upset Stop: 11/24/25 21:56 Bismuth Subsalicylate (Bismuth Subsalicylate 262 Mg Chew) 2 tab PO Q30M PRN PRN Reason: Loose Stool/Diarrhea Stop: 11/24/25 21:56 Divalproex Sodium (Divalproex Delay Release 250 Mg Tabec) 250 mg PO HS QUINTIN Stop: 11/27/25 21:59 Last Admin: 10/28/25 21:22 Dose: 250 mg Ergocalciferol (Ergocalciferol 1250 Mcg (50,000 Units) Cap) 1,250 mcg PO We@0900 [facility] Stop: 11/30/25 08:59 Ferrous Sulfate (Ferrous Sulfate 325 Mg Tab) 325 mg PO QPM QUINTIN Stop: 11/25/25 20:59 Last Admin: 10/28/25 21:22 Dose: 325 mg Hydroxyzine HCl (Hydroxyzine Hcl 25 Mg Tab) 50 mg PO HSZ PRN PRN Reason: Insomnia Stop: 11/24/25 21:56 Hydroxyzine HCl (Hydroxyzine Hcl 25 Mg Tab) 25 mg PO Q4H PRN PRN Reason: Anxiety Stop: 11/24/25 21:56 Lamotrigine (Lamotrigine 25 Mg Tab) 25 mg PO QAM [facility]; Protocol Stop: 11/25/25 11:59 Last Admin: 10/29/25 09:57 Dose: 25 mg Lorazepam (Lorazepam 0.5 Mg Tab) 0.5 mg PO Q6 PRN PRN Reason: Anxiety/Agitation Stop: 11/24/25 22:27 Magnesium Hydroxide (Magnesium Hydroxide Susp 30 Ml Udc) 30 ml PO DAILY PRN PRN Reason: Constipation Stop: 11/24/25 21:56 Olanzapine (Olanzapine 5 Mg Tablet) 5 mg PO Q6 PRN PRN Reason: Agitation Stop: 11/25/25 00:00 Quetiapine Fumarate (Quetiapine Fumarate 25 Mg Tablet) 150 mg PO QPM QUINTIN Stop: 11/25/25 20:59 Last Admin: 10/28/25 21:22 Dose: 150 mg Sodium Chloride (Sodium Chloride 0.65% Na Soln 45 Ml ([place])) 1 - 2 sprays NA PRN PRN PRN Reason: Nasal Dryness/Congestion Stop: 11/24/25 21:56 Mental Health & Subst Abuse Tx Psychiatrist Name of Psychiatrist: Kat Ferraro Psychiatrist's Date Of Appointment With Psychiatric Provider: 11/05/25 Time of Appointment with Psychiatrist: 8:30AM Psychiatric Appointment Comment: Virtual Therapist Name of Therapist: Sydney Mclaughlin Therapist's Date of Therapist Appointment: 11/22/24 Time of Therapist Appointment: 4PM Therapy Appointment Comment: In person. [address] [facility], [address], [place] [address] Textile Chemist Name of Textile Chemist: n/a Post Discharge Appointments Primary Care Physician Name Of Family Doctor/PCP: Dr. Beltran Contact Information Discharge Discharge Address: [address] [place] [id number] Contact Information Comment: [email or web address]
[2025-10-29] MEDS: DIVALPROEX DELAY RELEASE 500 MG TAB PO SCH (21:02)
--- NOTE | 2025-10-30 12:36 | Psychiatric Progress Note ---
Date of Service October 30, 2025 Impression / Recommendations Impression Patient is 20-year-old male with a known history of bipolar 2 disorder, and presents with likely mixed episode, involving depressive features (hypersomnia, low motivation and low mood with increased sense of worthlessness), and mild hypomanic symptoms (talkativeness, pressured speech, racing thoughts). However, also had a significant amount of anxiety, which does seem to stem from a longstanding history of multiple traumatic events, many of them related to his minority status, which interfered with his normal development of identity and social connectedness. A:Presenting continued racing thoughts and negative self judgment. Disrupted and shortened sleep; plan to trial trazodone instead of quetiapine. Patient was counseled about mindfulness and strategies for emotional regulation. Overall, I spent a total of 40 minutes on this patient's care, including review of chart/records, direct evaluation of the patient, ordering medication, coordination with nursing, interdisciplinary team meeting, and documentation. (1) Borderline personality disorder: (2) ADHD (attention deficit hyperactivity disorder), inattentive type: (3) Mixed bipolar II disorder: Plan 10/30/2025: Discontinue quetiapine Start trazodone 50 mg at bedtime 10/29/2025: Increase Depakote to 500 mg at bedtime Decrease quetiapine to 50 mg at bedtime 10/28/2025: Start Depakote 250 mg at bedtime 10/27/2025: Questionnaires: BPD screener, medication check list Continue medications 10/26/25: The patient was admitted to the [facility] ([facility] unit) on q15 min checks (behavioral with suicide precautions) for safety. The patient will participate in group, recreational, and milieu therapies and will be offered additional individual and family sessions as clinically appropriate. New medications initiated: Lamictal 25 mg Continue the following home medications: Seroquel 150 mg nightly * Viibryd can be continued once patient brings it in from home, since it is not on hospital's formulary The following PRN medications will be started as well: Zyprexa and Ativan as needed agitation Vistaril as needed sleep or anxiety Maalox, Pepto, milk of mag as needed GI distress Tylenol as needed pain Inventory Assets Strengths: well-spoken, establish outpatient providers, supportive parents Needs: and proved coping skills, medication adjustment, possibly new therapy referral Suicide Risk Level Suicide Risk Level: Moderate (q15 min suicide checks) Suicide Risk Level Comments: moderate given statements of passive/vague suicidal ideation. No intent or plan. No history of attempts. Does have a past psychiatric admission, and increased impulsivity due to hypomanic features. Risk Factors Assessment Male: Yes : No Do You Have Access To A Gun?: No Health Problems: No Mental Health Diagnoses: Yes Substance Use Disorders: No Previous Attempt: No Family History of Suicide: No Previous Psychiatric Hospitalization: Yes Protective Factors Assessment Judaism Beliefs: No : No Responsible for Young Children: No Employed: No Supportive Family: Yes Interval History Identifying Information Patient is 20-year-old male with a known history of bipolar 2 disorder presenting with depressive features (hypersomnia, low motivation and low mood with increased sense of worthlessness), and mild hypomanic symptoms (talkativeness, pressured speech, racing thoughts). Chief Complaint Emotional dysregulation Review of Systems Sleep Information Total Hours of Sleep: 5 Meal Information Percent Meal Consumed - Breakfast: 100 Percent Meal Consumed - Lunch: 100 Percent Meal Consumed - Dinner: 100 Subjective Subjective Patient was seen & assessed and interval progress reviewed with treatment team nursing and social work Overnight slept 5 hours. Rated mood 2.5 out of 10. Appeared flat. Was fixated on Depakote side effects per nursing. Patient discusses having paralysis after feeling heavy emotions. Says he is able to concentrate better and shows me some of the work he has been doing in his notebook. Asking about Depakote side effects and was educated and reassured. Continues to have sleep onset anxiety and disturbed sleep. Reports 5 minutes of paralysis upon waking and related to intense emotions. Reports in the morning feeling "upset, sad, guilty, self-doubt". Upon awakening often times judges himself and whether he is able to accomplish his daily tasks. Physical Exam Mental Examination Appearance: Well Groomed Eye Contact: Maintains Eye Contact Motor Behavior: Unremarkable Speech: Normal and Circumstantial Mood: Calm and Anxious Affect: Congruent and Constricted Thought Process: Intact, Circumstantial and Linear Thought Content: Racing Hallucinations: None Insight: Fair Judgement: Fair Vital Signs (Past 24 Hours) Last Vital Signs Temp 36.3 C L 10/30/25 06:10 Pulse 82 10/30/25 06:11 Resp 16 10/30/25 06:10 BP 112/70 10/30/25 06:11 Pulse Ox 98 10/29/25 06:54 O2 Del Method Room Air 10/29/25 06:54 A physical exam was performed in the ED for the purposes of medical clearance. I accept that physical as correct and adequate for the purposes of the inpatient physical exam. Results & Data ([facility]) Current Inpatient Medications Current Inpatient Medications: Current Inpatient Medications Acetaminophen (Acetaminophen 325 Mg Tab) 650 mg PO Q4H PRN PRN Reason: Headache or Minor Fever Stop: 11/24/25 21:56 Al Hydrox/Mg Hydrox/Simethicone (Aluminum/Magnesium Susp 30 Ml Udc) 30 ml PO Q4H PRN PRN Reason: GI Upset Stop: 11/24/25 21:56 Bismuth Subsalicylate (Bismuth Subsalicylate 262 Mg Chew) 2 tab PO Q30M PRN PRN Reason: Loose Stool/Diarrhea Stop: 11/24/25 21:56 Divalproex Sodium (Divalproex Delay Release 500 Mg Tab) 500 mg PO HS QUINTIN Stop: 11/28/25 21:59 Last Admin: 10/29/25 21:02 Dose: 500 mg Ergocalciferol (Ergocalciferol 1250 Mcg (50,000 Units) Cap) 1,250 mcg PO We@0900 QUINTIN Stop: 11/30/25 08:59 Ferrous Sulfate (Ferrous Sulfate 325 Mg Tab) 325 mg PO QPM QUINTIN Stop: 11/25/25 20:59 Last Admin: 10/29/25 21:02 Dose: 325 mg Hydroxyzine HCl (Hydroxyzine Hcl 25 Mg Tab) 50 mg PO HSZ PRN PRN Reason: Insomnia Stop: 11/24/25 21:56 Hydroxyzine HCl (Hydroxyzine Hcl 25 Mg Tab) 25 mg PO Q4H PRN PRN Reason: Anxiety Stop: 11/24/25 21:56 Lamotrigine (Lamotrigine 25 Mg Tab) 25 mg PO QAM QUINTIN; Protocol Stop: 11/25/25 11:59 Last Admin: 10/30/25 09:17 Dose: 25 mg Lorazepam (Lorazepam 0.5 Mg Tab) 0.5 mg PO Q6 PRN PRN Reason: Anxiety/Agitation Stop: 11/24/25 22:27 Magnesium Hydroxide (Magnesium Hydroxide Susp 30 Ml Udc) 30 ml PO DAILY PRN PRN Reason: Constipation Stop: 11/24/25 21:56 Olanzapine (Olanzapine 5 Mg Tablet) 5 mg PO Q6 PRN PRN Reason: Agitation Stop: 11/25/25 00:00 Quetiapine Fumarate (Quetiapine Fumarate 25 Mg Tablet) 50 mg PO QPM QUINTIN Stop: 11/28/25 20:59 Last Admin: 10/29/25 21:04 Dose: 50 mg Sodium Chloride (Sodium Chloride 0.65% Na Soln 45 Ml ([place])) 1 - 2 sprays NA PRN PRN PRN Reason: Nasal Dryness/Congestion Stop: 11/24/25 21:56 Mental Health & Subst Abuse Tx Psychiatrist Name of Psychiatrist: Kat Leiva- Dr. Ferraro Psychiatrist's Date Of Appointment With Psychiatric Provider: 11/05/25 Time of Appointment with Psychiatrist: 8:30AM Psychiatric Appointment Comment: Virtual Therapist Name of Therapist: Sydney Mclaughlin Therapist's Date of Therapist Appointment: 11/22/24 Time of Therapist Appointment: 4PM Therapy Appointment Comment: In person. [address] [facility], [place] [address], [place] [address] Framing Mill Supervisor Name of Framing Mill Supervisor: n/a Post Discharge Appointments Primary Care Physician Name Of Family Doctor/PCP: Dr. Beltran Other #1: Name of [facility]care App[facility]ment[facility] Number of Aftercare Appointment: [phone] Date of Aftercare Appointment: 11/06/25 Time of Aftercare Appointment: 10:30AM via Zoom Aftercare Appointment Comment: Zoom link sent to email. Text message from ribbon cleaner sent to phone # Contact Information Discharge Discharge Address: [address] [place] [id number] Contact Information Comment:
[2025-10-31] MEDS: ERGOCALCIFEROL 1250 MCG (50,000 UNITS) CAP PO SCH (09:38)
--- NOTE | 2025-10-31 15:32 | Psychiatric Progress Note ---
Date of Service October 31, 2025 Impression / Recommendations Impression Patient is 20-year-old male with a known history of bipolar 2 disorder, and presents with likely mixed episode, involving depressive features (hypersomnia, low motivation and low mood with increased sense of worthlessness), and mild hypomanic symptoms (talkativeness, pressured speech, racing thoughts). However, also had a significant amount of anxiety, which does seem to stem from a longstanding history of multiple traumatic events, many of them related to his minority status, which interfered with his normal development of identity and social connectedness. A: Today we challenged patient's anxious ruminations and automatic negative thoughts and connected them to underlying beliefs about himself. He reports improved impulse control on Depakote. Having disrupted sleep and will optimize his sleep regimen. Overall, I spent a total of 30 minutes on this patient's care, including review of chart/records, direct evaluation of the patient, ordering medication, coordination with nursing, interdisciplinary team meeting, and documentation. (1) Borderline personality disorder: (2) ADHD (attention deficit hyperactivity disorder), inattentive type: (3) Mixed bipolar II disorder: Plan 10/31/2025: Increase trazodone to 100 mg and schedule every evening 10/30/2025: Discontinue quetiapine Start trazodone 50 mg at bedtime 10/29/2025: Increase Depakote to 500 mg at bedtime Decrease quetiapine to 50 mg at bedtime 10/28/2025: Start Depakote 250 mg at bedtime 10/27/2025: Questionnaires: BPD screener, medication check list Continue medications 10/26/25: The patient was admitted to the [facility] ([facility]) on q15 min checks (behavioral with suicide precautions) for safety. The patient will participate in group, recreational, and milieu therapies and will be offered additional individual and family sessions as clinically appropriate. New medications initiated: Lamictal 25 mg Continue the following home medications: Seroquel 150 mg nightly * Viibryd can be continued once patient brings it in from home, since it is not on hospital's formulary The following PRN medications will be started as well: Zyprexa and Ativan as needed agitation Vistaril as needed sleep or anxiety Maalox, Pepto, milk of mag as needed GI distress Tylenol as needed pain Inventory Assets Strengths: well-spoken, establish outpatient providers, supportive parents Needs: and proved coping skills, medication adjustment, possibly new therapy referral Suicide Risk Level Suicide Risk Level: Moderate (q15 min suicide checks) Suicide Risk Level Comments: moderate given statements of passive/vague suicidal ideation. No intent or plan. No history of attempts. Does have a past psychiatric admission, and i ncreased impulsivity due to hypomanic features. Risk Factors Assessment Male: Yes : No Do You Have Access To A Gun?: No Health Problems: No Mental Health Diagnoses: Yes Substance Use Disorders: No Previous Attempt: No Family History of Suicide: No Previous Psychiatric Hospitalization: Yes Protective Factors Assessment Gnosticism Beliefs: No : No Responsible for Young Children: No Employed: No Supportive Family: Yes Interval History Identifying Information Patient is 20-year-old male with a known history of bipolar 2 disorder presenting with depressive features (hypersomnia, low motivation and low mood with increased sense of worthlessness), and mild hypomanic symptoms (talkativeness, pressured speech, racing thoughts). Chief Complaint Emotional dysregulation, poor self esteem, adhd Review of Systems Sleep Information Total Hours of Sleep: 5 Meal Information Percent Meal Consumed - Breakfast: 0 Percent Meal Consumed - Lunch: 100 Percent Meal Consumed - Dinner: 100 Subjective Subjective Patient was seen & assessed and interval progress reviewed with treatment team nursing and social work Patient slept 5 hours. Rates mood 4 out of 10. Patient complains of trouble falling asleep however was able to stay asleep through the night. Reports having difficulty waking up due to sedation. Denies having nightmares. We discussed how to process emotions and thoughts and he reports making assumptions without evidence. Says that he is "scared" to go back to school because he is sensitive to what other people might say. Fearful of how they might react. Throughout the interview he is at times very distractible and tangential and requires redirection. He reports having a lack of identity and that his parents give him too much support such as telling him what to wear. He reports having improved impulse control on Depakote. Physical Exam Mental Examination Appearance: Well Groomed Eye Contact: Maintains Eye Contact Motor Behavior: Unremarkable Speech: Normal and Circumstantial Mood: Calm and Anxious Affect: Congruent and Constricted Thought Process: Intact, Circumstantial and Linear Thought Content: Racing Hallucinations: None Insight: Fair Judgement: Fair Vital Signs (Past 24 Hours) Last Vital Signs Temp 36.4 C 10/31/25 09:34 Pulse 77 10/31/25 09:34 Resp 20 10/31/25 09:34 BP 114/68 10/31/25 09:34 Pulse Ox 100 10/31/25 09:34 O2 Del Method Room Air 10/31/25 09:34 A physical exam was performed in the ED for the purposes of medical clearance. I accept that physical as correct and adequate for the purposes of the inpatient physical exam. Results & Data ([facility]) Current Inpatient Medications Current Inpatient Medications: Current Inpatient Medications Acetaminophen (Acetaminophen 325 Mg Tab) 650 mg PO Q4H PRN PRN Reason: Headache or Minor Fever Stop: 11/24/25 21:56 Al Hydrox/Mg Hydrox/Simethicone (Aluminum/Magnesium Susp 30 Ml Udc) 30 ml PO Q4H PRN PRN Reason: GI Upset Stop: 11/24/25 21:56 Bismuth Subsalicylate (Bismuth Subsalicylate 262 Mg Chew) 2 tab PO Q30M PRN PRN Reason: Loose Stool/Diarrhea Stop: 11/24/25 21:56 Divalproex Sodium (Divalproex Delay Release 500 Mg Tab) 500 mg PO HS QUINTIN Stop: 11/28/25 21:59 Last Admin: 10/30/25 21:02 Dose: 500 mg Ergocalciferol (Ergocalciferol 1250 Mcg (50,000 Units) Cap) 1,250 mcg PO We@0900 [facility] Stop: 11/30/25 08:59 Last Admin: 10/31/25 09:38 Dose: 1,250 mcg Ferrous Sulfate (Ferrous Sulfate 325 Mg Tab) 325 mg PO QPM QUINTIN Stop: 11/25/25 20:59 Last Admin: 10/30/25 21:01 Dose: 325 mg Hydroxyzine HCl (Hydroxyzine Hcl 25 Mg Tab) 50 mg PO HSZ PRN PRN Reason: Insomnia Stop: 11/24/25 21:56 Last Admin: 10/31/25 00:47 Dose: 50 mg Hydroxyzine HCl (Hydroxyzine Hcl 25 Mg Tab) 25 mg PO Q4H PRN PRN Reason: Anxiety Stop: 11/24/25 21:56 Lamotrigine (Lamotrigine 25 Mg Tab) 25 mg PO QAM [facility]; Protocol Stop: 11/25/25 11:59 Last Admin: 10/31/25 09:38 Dose: 25 mg Lorazepam (Lorazepam 0.5 Mg Tab) 0.5 mg PO Q6 PRN PRN Reason: Anxiety/Agitation Stop: 11/24/25 22:27 Magnesium Hydroxide (Magnesium Hydroxide Susp 30 Ml Udc) 30 ml PO DAILY PRN PRN Reason: Constipation Stop: 11/24/25 21:56 Olanzapine (Olanzapine 5 Mg Tablet) 5 mg PO Q6 PRN PRN Reason: Agitation Stop: 11/25/25 00:00 Sodium Chloride (Sodium Chloride 0.65% Na Soln 45 Ml ([place])) 1 - 2 sprays NA PRN PRN PRN Reason: Nasal Dryness/Congestion Stop: 11/24/25 21:56 Trazodone HCl (Trazodone Hcl 100 Mg Tab) 100 mg PO QPM QUINTIN Stop: 11/30/25 20:59 Mental Health & Subst Abuse Tx Psychiatrist Name of Psychiatrist: Kat Ferraro Psychiatrist's Date Of Appointment With Psychiatric Provider: 11/05/25 Time of Appointment with Psychiatrist: 8:30AM Psychiatric Appointment Comment: Virtual Therapist Name of Therapist: Sydney Mclaughlin Therapist's Date of Therapist Appointment: 11/22/24 Time of Therapist Appointment: 4PM Therapy Appointment Comment: In person. [address] [facility] [address], [place] [address] Yarn Dry Room Worker Name of Yarn Dry Room Worker: n/a Post Discharge Appointments Primary Care Physician Name Of Family Doctor/PCP: Dr. Beltran Other #1: Name of Aftercare App[facility]ment[facility] Number of Aftercare Appointment: [phone] Date of Aftercare Appointment: 11/06/25 Time of Aftercare Appointment: 10:30AM via Zoom Aftercare Appointment Comment: Zoom link sent to email. Text message from credit collections clerk sent to phone # Contact Information Discharge Discharge Address: [address] [place] [id number] Contact Information Comment:
--- NOTE | 2025-11-01 11:55 | Psychiatric Progress Note ---
Date of Service November 01, 2025 Impression / Recommendations Impression Patient is 20-year-old male with a known history of bipolar 2 disorder, and presents with likely mixed episode, involving depressive features (hypersomnia, low motivation and low mood with increased sense of worthlessness), and mild hypomanic symptoms (talkativeness, pressured speech, racing thoughts). However, also had a significant amount of anxiety, which does seem to stem from a longstanding history of multiple traumatic events, many of them related to his minority status, which interfered with his normal development of identity and social connectedness. A: On going sleep onset delays due to anxious ruminations and negative self talk. Presenting appropriate behaviors on the unit and engaging well in groups. Discussed his emotional response during the family meeting, perspective about his relationships, and meaningful ways to express himself. Overall, I spent a total of 35 minutes on this patient's care, including review of chart/records, direct evaluation of the patient, ordering medication, coordination with nursing, interdisciplinary team meeting, and documentation. (1) Borderline personality disorder: (2) ADHD (attention deficit hyperactivity disorder), inattentive type: (3) Mixed bipolar II disorder: Plan 11/01/2025: Reschedule Trazodone to be given one hour earlier 10/31/2025: Increase trazodone to 100 mg and schedule every evening 10/30/2025: Discontinue quetiapine Start trazodone 50 mg at bedtime 10/29/2025: Increase Depakote to 500 mg at bedtime Decrease quetiapine to 50 mg at bedtime 10/28/2025: Start Depakote 250 mg at bedtime 10/27/2025: Questionnaires: BPD screener, medication check list Continue medications 10/26/25: The patient was admitted to the [facility]) on q15 min checks (behavioral with suicide precautions) for safety. The patient will participate in group, recreational, and milieu therapies and will be offered additional individual and family sessions as clinically appropriate. New medications initiated: Lamictal 25 mg Continue the following home medications: Seroquel 150 mg nightly * Viibryd can be continued once patient brings it in from home, since it is not on hospital's formulary The following PRN medications will be started as well: Zyprexa and Ativan as needed agitation Vistaril as needed sleep or anxiety Maalox, Pepto, milk of mag as needed GI distress Tylenol as needed pain Inventory Assets Strengths: well-spoken, establish outpatient providers, supportive parents Needs: and proved coping skills, medication adjustment, possibly new therapy referral Suicide Risk Level Suicide Risk Level: Moderate (q15 min suicide checks) Suicide Risk Level Comments: moderate given statements of passive/vague suicidal ideation. No intent or plan. No history of attempts. Does have a past psychiatric admission, and increased impulsivity due to hypomanic features. Risk Factors Assessment Male: Yes : No Do You Have Access To A Gun?: No Health Problems: No Mental Health Diagnoses: Yes Substance Use Disorders: No Previous Attempt: No Family History of Suicide: No Previous Psychiatric Hospitalization: Yes Protective Factors Assessment Christianity Beliefs: No : No Responsible for Young Children: No Employed: No Supportive Family: Yes Interval History Identifying Information Patient is 20-year-old male with a known history of bipolar 2 disorder presenting with depressive features (hypersomnia, low motivation and low mood with increased sense of worthlessness), and mild hypomanic symptoms (talkativeness, pressured speech, racing thoughts). Chief Complaint Emotional dysregulation, poor self esteem Review of Systems Sleep Information Total Hours of Sleep: 5 Meal Information Percent Meal Consumed - Breakfast: 100 Percent Meal Consumed - Lunch: 100 Percent Meal Consumed - Dinner: 100 Subjective Subjective Patient was seen & assessed and interval progress reviewed with treatment team nursing and social work. 5hrs documented sleep. slightly hypotensive this AM. Pt rates his mood 3/10 and says that it is normal for him. Says he is taking his mental health more seriously. He journaled this thoughts prior to bed as advised and has been reflecting on them. When going to bed continued to ruminate with negative self talk and has sleep onset delays. Reports getting angry at his parents yesterday at the family meeting and feels regret for snapping at them. Says his parents were trying to validate and understand him but did it at the wrong time and not in the right way and shouldn't expect them to be perfect in that. Says it is ok to be emotional. We discussed his view of his parent's roles and expectations. Reports setting up goals to be more productive after discharge. Reports feeling less sedated this AM when waking to get breakfast. We discussed his resentment regarding his parents lack of validation and transparency from his childhood trauma and he presents a trust issue with them. Denies SI. Physical Exam Mental Examination Appearance: Well Groomed Eye Contact: Maintains Eye Contact Motor Behavior: Unremarkable Speech: Normal and Circumstantial Mood: Calm and Anxious Affect: Congruent and Constricted Thought Process: Intact, Circumstantial and Linear Thought Content: Racing Hallucinations: None Insight: Fair Judgement: Fair Vital Signs (Past 24 Hours) Last Vital Signs Temp 36.3 C L 11/01/25 06:27 Pulse 52 L 11/01/25 06:27 Resp 18 11/01/25 06:27 BP 81/45 L 11/01/25 06:27 Pulse Ox 100 11/01/25 06:27 O2 Del Method Room Air 11/01/25 06:27 A physical exam was performed in the ED for the purposes of medical clearance. I accept that physical as correct and adequate for the purposes of the inpatient physical exam. Results & Data ([facility]) Current Inpatient Medications Current Inpatient Medications: Current Inpatient Medications Acetaminophen (Acetaminophen 325 Mg Tab) 650 mg PO Q4H PRN PRN Reason: Headache or Minor Fever Stop: 11/24/25 21:56 Al Hydrox/Mg Hydrox/Simethicone (Aluminum/Magnesium Susp 30 Ml Udc) 30 ml PO Q4H PRN PRN Reason: GI Upset Stop: 11/24/25 21:56 Bismuth Subsalicylate (Bismuth Subsalicylate 262 Mg Chew) 2 tab PO Q30M PRN PRN Reason: Loose Stool/Diarrhea Stop: 11/24/25 21:56 Divalproex Sodium (Divalproex Delay Release 500 Mg Tab) 500 mg PO HS QUINTIN Stop: 11/28/25 21:59 Last Admin: 10/31/25 20:34 Dose: 500 mg Ergocalciferol (Ergocalciferol 1250 Mcg (50,000 Units) Cap) 1,250 mcg PO We@0900 [facility] Stop: 11/30/25 08:59 Last Admin: 10/31/25 09:38 Dose: 1,250 mcg Ferrous Sulfate (Ferrous Sulfate 325 Mg Tab) 325 mg PO QPM QUINTIN Stop: 11/25/25 20:59 Last Admin: 10/31/25 20:34 Dose: 325 mg Hydroxyzine HCl (Hydroxyzine Hcl 25 Mg Tab) 50 mg PO HSZ PRN PRN Reason: Insomnia Stop: 11/24/25 21:56 Last Admin: 10/31/25 00:47 Dose: 50 mg Hydroxyzine HCl (Hydroxyzine Hcl 25 Mg Tab) 25 mg PO Q4H PRN PRN Reason: Anxiety Stop: 11/24/25 21:56 Lamotrigine (Lamotrigine 25 Mg Tab) 25 mg PO QAM QUINTIN; Protocol Stop: 11/25/25 11:59 Last Admin: 11/01/25 09:28 Dose: 25 mg Lorazepam (Lorazepam 0.5 Mg Tab) 0.5 mg PO Q6 PRN PRN Reason: Anxiety/Agitation Stop: 11/24/25 22:27 Magnesium Hydroxide (Magnesium Hydroxide Susp 30 Ml Udc) 30 ml PO DAILY PRN PRN Reason: Constipation Stop: 11/24/25 21:56 Olanzapine (Olanzapine 5 Mg Tablet) 5 mg PO Q6 PRN PRN Reason: Agitation Stop: 11/25/25 00:00 Sodium Chloride (Sodium Chloride 0.65% Na Soln 45 Ml ([place])) 1 - 2 sprays NA PRN PRN PRN Reason: Nasal Dryness/Congestion Stop: 11/24/25 21:56 Trazodone HCl (Trazodone Hcl 100 Mg Tab) 100 mg PO QPM QUINTIN Stop: 11/30/25 20:59 Last Admin: 10/31/25 20:34 Dose: 100 mg Mental Health & Subst Abuse Tx Psychiatrist Name of Psychiatrist: Kat Ferraro Psychiatrist's Date Of Appointment With Psychiatric Provider: 11/05/25 Time of Appointment with Psychiatrist: 8:30AM Psychiatric Appointment Comment: Virtual Therapist Name of Therapist: Sydney Mclaughlin Therapist's Date of Therapist Appointment: 11/22/24 Time of Therapist Appointment: 4PM Therapy Appointment Comment: In person. [address] [facility], [address], [place] [address] Bead Wire Taper Name of Bead Wire Taper: n/a Post Discharge Appointments Primary Care Physician Name Of Family Doctor/PCP: Dr. Beltran Other #1: Name of Aftercare Appointment: Intensive Outpatient - [facility] Phone Number of Aftercare Appointment: [phone] Date of Aftercare Appointment: 11/06/25 Time of Aftercare Appointment: 10:30AM via Zoom Aftercare Appointment Comment: Zoom link sent to email. Text message from counter hand sent to phone # Contact Information Discharge Discharge Address: [address] [place] [address] Contact Information Comment: [email or web address]
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
== END 2025-11-02 11:24 | disposition home or self-care (01) | DRG 885 ==
LOC: ED 16:46 → 3S 20:55 → SUATTDRO 20:55 → 3S 21:15